=== PATIENT | female | born 1975 | race African-American/Black ===

== ENCOUNTER 2018-05-04 19:58 | Emergency (ER) | payer BC ==
[~2018-05-04] VITALS: Ht 160 cm; Wt 58.1 kg
[2018-05-04] MEDS ORDERED: LACTULOSE SYRUP 20 GM/30 ML UDC PO ONE (20:30)
--- NOTE | 2018-05-04 20:52 | Diagnostic Imaging Report ---
Exam: Abdominal film Clinical History: Constipation, abdominal bloating Comparison: None. DISCUSSION: Frontal view of the abdomen shows a nonobstructive bowel gas pattern with moderate to marked amount of retained stool.There are no dilated, air-filled loops of bowel. There are no abnormal calcifications.Bilateral pelvic phleboliths. No acute bony abnormalities. IMPRESSION: 1. Nonobstructive bowel gas pattern with moderate to marked amount of retention, suggesting constipation. No air-filled, dilated loops of bowel.. The staff physician below has personally reviewed this exam on the date of dictation. Signed by: Dr. Erasmo Wilson M.D. on 05/04/2018 8:49 PM
== END 2018-05-04 21:10 | disposition home or self-care (01) ==
LOC: FSED 19:58
DX: K59.00 Constipation, unspecified (principal); I10 Essential (primary) hypertension
CPT/HCPCS: 74018; 99283

== ENCOUNTER 2018-11-13 12:45 | Emergency (ER) | payer BC ==
[~2018-11-13] VITALS: Ht 160 cm; Wt 58.1 kg
--- OUTSIDE RECORDS SUMMARY | 2018-11-13 12:48 | XMS REPORT ---
Author [facility] Address Unknown Phone Unavailable Care Team Providers Care Pattern Wheel Maker Name Role Phone Eddi AGRAWAL Unavailable Unavailable Problems This patient has no known problems. Allergies, Adverse Reactions, Alerts This patient has no known allergies or adverse reactions. Medications This patient has no known medications. Results Test Description Test Time Test Comments Text Results Atomic Results Result Comments ABDOMEN 1 VIEW([facility] 2018-05-04 20:48:00 [place] [address] Patient Name: KAI COREA MR #: [id number] : 1975 Age/Sex: 42/F Req #: [id number] Adm Physician: Ordered by: OLENA AGRAWAL MD Report #: [id number] Location: [facility] Room/Bed: Procedure: [id number] HOPD/ABDOMEN 1 VIEW([facility] Exam Date: 05/04/18 Exam Time: 2039 REPORT STATUS: Signed Exam: Abdominal film Clinical History: Constipation, abdominal bloating Comparison: None. DISCUSSION: Frontal view of the abdomen shows a nonobstructive bowel gas pattern with moderate to marked amount of retained stool.There are no dilated, air-filled loops of bowel. There are no abnormal calcifications.Bilateral pelvic phleboliths. No acute bony abnormalities. IMPRESSION: 1. Nonobstructive bowel gas pat tern with moderate to marked amount of retention, suggesting constipation. No air-filled, dilated loops of bowel.. The staff physician below has personally reviewed this exam on the date of dictation. Signed by: Dr. Amie Wilson M.D. on 05/04/2018 8:49 PM Dictated By: AMIE WILSON MD 50 Transcribed By: HANSEL on 05/04/182048 COPY TO: OLENA AGRAWAL MD
== END 2018-11-13 13:31 | disposition home or self-care (01) ==
LOC: FSED 12:45
DX: R50.9 Fever, unspecified (principal); R05 Cough; J20.9 Acute bronchitis, unspecified; I10 Essential (primary) hypertension; E78.00 Pure hypercholesterolemia, unspecified
CPT/HCPCS: 99282

== ENCOUNTER 2019-03-15 12:55 | Emergency (ER) | payer BC ==
[~2019-03-15] VITALS: Ht 160 cm; Wt 62.6 kg
[2019-03-15] MEDS ORDERED: AMLODIPINE BESYL5 MG PO (13:18)
[2019-03-15] MEDS ORDERED: IBUPROFEN 600 MG TAB PO STA (13:24)
[2019-03-15] MEDS ORDERED: IBUPROFEN 200 MG TAB ONE (13:40)
--- NOTE | 2019-03-15 14:22 | Diagnostic Imaging Report ---
EXAMINATION: CXR 2 VIEW - HOPD INDICATION: Shortness of breath COMPARISON: None FINDINGS: LINES/TUBES:None LUNGS:The lungs are well-inflated. No focal consolidation or pulmonary edema. PLEURA:No pleural effusion or pneumothorax. MEDIASTINUM:The cardiomediastinal silhouette appears normal in size and shape. BONES/SOFT TISSUES:No acute osseous injury. ABDOMEN:No free air under the diaphragm. IMPRESSION: No focal pneumonia or pulmonary edema. Signed by: Amari Finney MD on 03/15/2019 1:51 PM
[2019-03-15 14:35] VITALS: BP 140/91
== END 2019-03-15 14:17 | disposition home or self-care (01) ==
LOC: FSED 12:55
DX: M54.6 Pain in thoracic spine (principal)
CPT/HCPCS: 71046; 93005; 99283

== ENCOUNTER 2019-05-13 19:41 | Emergency (ER) | payer BC ==
[~2019-05-13] VITALS: Ht 160 cm; Wt 62.6 kg
[~2019-05-13 19:41] MED LIST: AMLODIPINE BESYL5 MG PO
[2019-05-13] MEDS ORDERED: ACETAMINOPHEN 325 MG TAB PO STA (20:36)
[2019-05-13] MEDS ORDERED: ACETAMINOPHEN 325 MG TAB ONE (20:57)
== END 2019-05-13 20:55 | disposition home or self-care (01) ==
LOC: FSED 19:41
DX: J02.9 Acute pharyngitis, unspecified (principal); I10 Essential (primary) hypertension
CPT/HCPCS: 83518; 87400; 99282

== ENCOUNTER 2020-07-08 14:59 | Emergency (ER) | payer BC ==
[~2020-07-08] VITALS: Ht 160 cm; Wt 62.1 kg
== END 2020-07-08 17:03 | disposition home or self-care (01) ==
LOC: FSED 15:10
DX: M54.12 Radiculopathy, cervical region (principal); R53.1 Weakness; I10 Essential (primary) hypertension
CPT/HCPCS: 70450; 71046; 72125; 80053; 81003; 82553; 84484; 85025; 93005; 99283

== ENCOUNTER 2021-02-19 13:38 | Emergency (ER) | payer BC ==
[~2021-02-19] VITALS: Ht 160 cm; Wt 64.9 kg
[2021-02-19] MEDS ORDERED: NAPROSYN500 MG PO (15:14)
[2021-02-19] MEDS ORDERED: CYCLOBENZAPRINE5 MG PO (15:14)
== END 2021-02-19 15:24 | disposition home or self-care (01) ==
LOC: FSED 14:06
DX: R09.1 Pleurisy (principal); M54.9 Dorsalgia, unspecified; M25.512 Pain in left shoulder; I10 Essential (primary) hypertension; Z79.899 Other long term (current) drug therapy
CPT/HCPCS: 71046; 99283

== ENCOUNTER 2024-02-16 18:06 | Emergency (ER) | payer BC ==
[~2024-02-16] VITALS: Ht 160 cm; Wt 67.4 kg
[~2024-02-16 18:06] MED LIST changes: +CYCLOBENZAPRINE5 MG PO; +NAPROSYN500 MG PO
[2024-02-16 20:15] VITALS: PULSE 84; RESP 16; TEMP 98.7; O2SAT 97
[2024-02-16] MEDS ORDERED: FIORICET 50-301 EACH PO (20:54)
[2024-02-16] MEDS: KETOROLAC TROMETHAMINE 30 MG/ML VIAL IV STA (20:57)
[2024-02-16] MEDS ORDERED: KETOROLAC TROMETHAMINE 30 MG/ML VIAL ONE (21:00)
== END 2024-02-16 21:39 | disposition home or self-care (01) ==
LOC: FSED 18:26
DX: R51.9 Headache, unspecified (principal); I10 Essential (primary) hypertension; R42 Dizziness and giddiness
CPT/HCPCS: 70450; 70486; 80053; 80307; 81003; 85025; 99284; J1885